=== PATIENT | male | born 1995 | race Caucasian/White ===

== ENCOUNTER 2021-10-04 11:39 | Emergency (ER) | payer OTHER ==
[~2021-10-04 11:39] MED LIST: NORCO 5-325 TA1 EACH PO
[2021-10-04] MEDS ORDERED: ZOFRAN ODT 4 MG4 MG SL (13:48)
== END 2021-10-04 16:00 | disposition home or self-care (01) ==
LOC: ER1 11:39
DX: R11.2 Nausea with vomiting, unspecified (principal)
CPT/HCPCS: 96374; 99283; J2405